=== PATIENT | female | born 1990 | race Two or more races ===

== ENCOUNTER 2019-05-22 14:26 | Emergency (ER) | payer SELFPAY ==
[~2019-05-22] VITALS: Ht 170.2 cm; Wt 111.1 kg
[~2019-05-22 14:26] MED LIST: DAYQUIL; IBUP200C14
[2019-05-22 14:38] VITALS: BP 148/99
[2019-05-22 15:13] LABS: Urine Bacteria NONE SEEN /hpf (None Seen); Urine Blood Negative /uL (Negative); Urine Mucus MODERATE (None Seen); Urine WBC 10 /hpf (0 - 5)
== END 2019-05-22 15:50 | disposition home or self-care (01) ==
LOC: ER 14:28
DX: N39.0 Urinary tract infection, site not specified (principal)
CPT/HCPCS: 81001; 81025